=== PATIENT | male | born 1965 | race African-American/Black ===

== ENCOUNTER 2017-03-07 06:29 | Inpatient (IN) | payer BC, MEDICARE ==
[~2017-03-07] VITALS: Ht 175.3 cm; Wt 69.4 kg
[2017-03-07] VITALS (37 sets, daily range): BP systolic 84–178; BP diastolic 54–102
[~2017-03-07 06:29] MED LIST: ETOMIDATE 2MG/ML 10ML VIAL IV ONE; STERILE WATER FOR INJECTION 10ML VIAL ONE; SUCCINYLCHOLINE CHLORIDE 200MG/10ML VIAL IV ONE; VECURONIUM BROMIDE 10 MG/VIAL IV ONE
[2017-03-07] MEDS ORDERED: SODIUM CHLORIDE 0.9% 1000ML BAG (SEPSIS BOLUS) IV ONE (06:45)
[2017-03-07] MEDS ORDERED: PROPOFOL 10MG/ML 100ML 100 ML IV ONE (06:45)
[2017-03-07] MEDS ORDERED: SUCCINYLCHOLINE CHLORIDE 200MG/10ML VIAL IV ONE (06:45)
[2017-03-07] MEDS ORDERED: LEVETIRACETAM 500MG/5ML CUP PO ONE (06:45)
[2017-03-07] MEDS ORDERED: VECURONIUM BROMIDE 10 MG/VIAL IV ONE (07:00)
[2017-03-07 07:10] LABS: HEMOGLOBIN. 15.3 g/dL (14.0-18.0); LYMPHOCYTES % 23.5 % (20.0-50.0); MEAN CORPUSCULAR HEMOGLOBIN 27.2 pg (28.0-32.0); MEAN CORPUSCULAR VOLUME 87.4 fL (80.0-94.0); MEAN PLATELET VOLUME 10.8 fl (7.4-10.4); MONOCYTES % 6.9 % (2.0-8.0); NEUTROPHILS % 63.6 % (40.0-76.0); PLATELET 171 x1000/uL (130-400); RED BLOOD CELL COUNT 5.61 mill/uL (4.7-6.1); RED CELL DISTRIBUTION WIDTH 17.7 % (11.6-14.6)
[2017-03-07 07:13] LABS: CHLORIDE 102 mEq/L (98-107)
[2017-03-07 07:16] LABS: INR 2.7; PROTHROMBIN TIME 28.4 sec
[2017-03-07 07:25] LABS: CARBON DIOXIDE 23 mEq/L (21-32); ETHANOL BLOOD < 10 mg/dL; TROPONIN I < 0.02 ng/mL (0.00-0.04)
[2017-03-07] MEDS ORDERED: ETOMIDATE 2MG/ML 10ML VIAL IV ONE (07:30)
[2017-03-07] MEDS ORDERED: LEVETIRACETAM 1,000 MG in SODIUM CHLORIDE 0.9% 100 ML IV NR (07:45)
[2017-03-07] MEDS ORDERED: LORAZEPAM 2MG/ML CPJ IV ONE (08:30)
[2017-03-07 08:57] LABS: BG BASE EXCESS -2.2 mmol/L (-2.0-2.0); BG CARBOXYHEMOGLOBIN 0.3 % (0.5-1.5); BG DEOXYHEMOGLOBIN 0.4 % (0.0-5.0); BG FRACTION INSPIRED OXYGEN 100; BG HCO3 ACT 20.8 mmol/L (22.0-26.0); BG METHEMOGLOBIN 0.6 % (0.0-1.5); BG OXYGEN SATURATION 99.6 % (92.0-98.5); BG OXYHEMOGLOBIN 98.7 % (94.0-97.0); BG PCO2 31.5 mmHg (35.0-45.0); BG PH 7.438 (7.350-7.450); BG PO2 477.7 mmHg (75.0-100.0); BG SAMPLE SITE LEFT BRACHIAL; BG TIDAL VOLUME(mL) 500 mL; BG TOTAL HEMOGLOBIN 16.3 g/dL (12.0-18.0); BG VENT MODE VENT - A/C; BG VENT RATE 12 set
[2017-03-07 09:06] LABS: *AMPHETAMINES SCREEN URINE NEGATIVE (NEGATIVE); *BARBITURATES SCREEN URINE NEGATIVE (NEGATIVE); *BENZODIAZEPINES SCREEN URINE NEGATIVE (NEGATIVE); *COCAINE SCREEN URINE NEGATIVE (NEGATIVE); CANNABINOID URINE SCREEN NEGATIVE (NEGATIVE); METHADONE URINE SCREEN NEGATIVE (NEGATIVE); OPIATES URINE SCREEN NEGATIVE (NEGATIVE); PHENCYCLIDINE URINE SCREEN NEGATIVE (NEGATIVE)
[2017-03-07 09:43] LABS: CLARITY URINE CLEAR (CLEAR); COLOR URINE YELLOW (YELLOW); GLUCOSE URINE NEGATIVE (NEGATIVE); KETONES URINE NEGATIVE (NEGATIVE); LEUKOCYTE ESTERASE URINE NEGATIVE (NEGATIVE); NITRITE URINE NEGATIVE (NEGATIVE); OCCULT BLOOD URINE 1+ (NEGATIVE); PH URINE 6.5 (4.5-8.0); PROTEIN URINE 2+ (NEGATIVE); SPECIFIC GRAVITY URINE 1.012 (1.005-1.030); UROBILINOGEN URINE 0.2 E.U./dL (0.2-1.0)
[2017-03-07] MEDS ORDERED: ACYC200C PO (11:25)
[2017-03-07] MEDS ORDERED: PRED5TAB48 PO (11:25)
[2017-03-07] MEDS ORDERED: WARF7.5T22 PO (11:25)
[2017-03-07] MEDS ORDERED: WARF10TA21 PO (11:25)
[2017-03-07] MEDS ORDERED: NIFE30TA94 PO (11:25)
[2017-03-07] MEDS ORDERED: FURO20TA4 PO (11:25)
[2017-03-07] MEDS ORDERED: BELATACEPT (11:25)
[2017-03-07] MEDS ORDERED: LEVEMIR SUBCUT (11:29)
[2017-03-07] MEDS ORDERED: ONDANSETRON HCL 4MG/2ML VIAL IV PRN (12:30)
[2017-03-07] MEDS ORDERED: ACETAMINOPHEN 325MG TABLET PO PRN (12:30)
[2017-03-07] MEDS ORDERED: CLONIDINE 0.1MG TABLET PO PRN (12:30)
[2017-03-07] MEDS ORDERED: ACYCLOVIR 200MG CAPSULE PO SCH (12:30)
[2017-03-07] MEDS ORDERED: DEXTROSE 50% WATER 50ML SYRINGE IV PRN (12:30)
[2017-03-07] MEDS ORDERED: BLOOD SUGAR DIAGNOSTIC STRIP TEST SCH (12:50)
[2017-03-07] MEDS ORDERED: INSULIN LISPRO 100 UNITS/ML SUBCUT SCH (13:20)
[2017-03-07] MEDS: PANTOPRAZOLE SODIUM 40 MG/VIAL IV SCH (13:29)
[2017-03-07] MEDS: PREDNISONE 5MG TABLET PO SCH (13:30)
[2017-03-07] MEDS: PROPOFOL 10MG/ML 100ML 100 ML IV PRN ×2 (13:30→21:02)
[2017-03-07] MEDS: DEXT 5%/0.45% NACL 1000ML 1,000 ML IV SCH (13:47)
[2017-03-07] MEDS: PIPERACILLIN/TAZ 3.375G PREMIX 50 ML IV SCH ×2 (13:50→21:35)
[2017-03-07] MEDS: IPRATROPIUM/ALBUTEROL 0.5-3(2.5)MG/3ML NEB INH PRN (13:56)
[2017-03-07 16:44] LABS: TROPONIN I 0.08 ng/mL (0.00-0.04)
[2017-03-07] MEDS: BLOOD SUGAR DIAGNOSTIC STRIP TEST SCH (18:00)
[2017-03-07] MEDS: INSULIN LISPRO 100 UNITS/ML SUBCUT SCH (19:26)
[2017-03-07] MEDS: LEVETIRACETAM 500 MG in SODIUM CHLORIDE 0.9% 100 ML IV SCH (20:47)
[2017-03-08] VITALS (38 sets, daily range): BP systolic 101–150; BP diastolic 59–94
[2017-03-08] MEDS: BLOOD SUGAR DIAGNOSTIC STRIP TEST SCH ×5 (00:09→23:51)
[2017-03-08] MEDS: INSULIN LISPRO 100 UNITS/ML SUBCUT SCH ×5 (00:12→23:59)
[2017-03-08 00:42] LABS: TROPONIN I 0.05 ng/mL (0.00-0.04)
[2017-03-08] MEDS: PROPOFOL 10MG/ML 100ML 100 ML IV PRN (03:43)
[2017-03-08] MEDS: DEXT 5%/0.45% NACL 1000ML 1,000 ML IV SCH ×2 (03:43→15:35)
[2017-03-08 05:45] LABS: BASOPHILS % 0.6 % (0.0-2.0); EOSINOPHILS % 2.8 % (0.0-5.0); HEMATOCRIT. 46.5 % (42.0-52.0); LYMPHOCYTES % 11.4 % (20.0-50.0); MEAN CORPUSCULAR HEMOGLOBIN 27.2 pg (28.0-32.0); MEAN CORPUSCULAR VOLUME 84.6 fL (80.0-94.0); MEAN PLATELET VOLUME 11.4 fl (7.4-10.4); MONOCYTES % 10.8 % (2.0-8.0); NEUTROPHILS % 74.4 % (40.0-76.0); PLATELET 135 x1000/uL (130-400); RED CELL DISTRIBUTION WIDTH 18.2 % (11.6-14.6)
[2017-03-08 06:09] LABS: CARBON DIOXIDE 27 mEq/L (21-32); CHLORIDE 104 mEq/L (98-107)
[2017-03-08 06:16] LABS: HDL CHOLESTEROL 72 mg/dL (40-59); LDL CHOLESTEROL 93 mg/dL (5-100)
[2017-03-08] MEDS: PIPERACILLIN/TAZ 3.375G PREMIX 50 ML IV SCH ×3 (06:24→21:59)
[2017-03-08 07:50] LABS: BG BASE EXCESS 0.8 mmol/L (-2.0-2.0); BG CARBOXYHEMOGLOBIN 0.6 % (0.5-1.5); BG DEOXYHEMOGLOBIN 2.4 % (0.0-5.0); BG HCO3 ACT 23.1 mmol/L (22.0-26.0); BG METHEMOGLOBIN 0.2 % (0.0-1.5); BG OXYGEN SATURATION 97.6 % (92.0-98.5); BG OXYHEMOGLOBIN 96.8 % (94.0-97.0); BG PCO2 30.9 mmHg (35.0-45.0); BG PH 7.492 (7.350-7.450); BG PO2 95.3 mmHg (75.0-100.0); BG SAMPLE SITE RIGHT BRACHIAL; BG TIDAL VOLUME(mL) 550 mL; BG TOTAL HEMOGLOBIN 15.1 g/dL (12.0-18.0); BG VENT MODE VENT - A/C; BG VENT RATE 12 set
[2017-03-08] MEDS: IPRATROPIUM/ALBUTEROL 0.5-3(2.5)MG/3ML NEB INH PRN ×2 (08:06→12:08)
[2017-03-08] MEDS: LEVETIRACETAM 500 MG in SODIUM CHLORIDE 0.9% 100 ML IV SCH ×2 (08:28→20:06)
[2017-03-08] MEDS: PANTOPRAZOLE SODIUM 40 MG/VIAL IV SCH (08:28)
[2017-03-08] MEDS: ACYCLOVIR 400 MG TABLET PO SCH (08:29)
[2017-03-08] MEDS: PREDNISONE 5MG TABLET PO SCH (08:29)
[2017-03-08] MEDS ORDERED: POTASSIUM CHLORIDE 20MEQ TABLET SR PO SCH (11:45)
[2017-03-08 12:02] LABS: BG BASE EXCESS -0.6 mmol/L (-2.0-2.0); BG CARBOXYHEMOGLOBIN 0.3 % (0.5-1.5); BG CPAP (cmH2O) 0 cm(H2O); BG HCO3 ACT 23.5 mmol/L (22.0-26.0); BG METHEMOGLOBIN 0.3 % (0.0-1.5); BG OXYHEMOGLOBIN 97.4 % (94.0-97.0); BG PCO2 37.4 mmHg (35.0-45.0); BG PH 7.416 (7.350-7.450); BG PO2 109.3 mmHg (75.0-100.0); BG SAMPLE SITE RIGHT BRACHIAL; BG TOTAL HEMOGLOBIN 15.4 g/dL (12.0-18.0); BG VENT MODE VENT - CPAP
[2017-03-08 13:37] LABS: INR 2.4; PROTHROMBIN TIME 24.7 sec
[2017-03-08 14:10] LABS: BG BASE EXCESS 0.2 mmol/L (-2.0-2.0); BG CARBOXYHEMOGLOBIN 0.6 % (0.5-1.5); BG FRACTION INSPIRED OXYGEN 35; BG HCO3 ACT 25.6 mmol/L (22.0-26.0); BG METHEMOGLOBIN 0.4 % (0.0-1.5); BG PCO2 44.1 mmHg (35.0-45.0); BG PH 7.382 (7.350-7.450); BG PO2 190.7 mmHg (75.0-100.0); BG SAMPLE SITE RIGHT BRACHIAL; BG TOTAL HEMOGLOBIN 15.4 g/dL (12.0-18.0); BG VENT MODE MASK - AEROSOL
[2017-03-08 15:25] LABS: HEPATITIS B SURFACE ANTIGEN NEGATIVE
[2017-03-08] MEDS: METHYLPREDNISOLONE SOD SUCC 40 MG/ML VIAL IV SCH (15:35)
[2017-03-08 15:53] LABS: HEPATITIS B CORE AB IGM NEGATIVE
[2017-03-08 15:54] LABS: HEPATITIS A AB IGM NEGATIVE (NEGATIVE)
[2017-03-08] MEDS: IPRATROPIUM/ALBUTEROL 0.5-3(2.5)MG/3ML NEB INH SCH ×2 (16:09→20:04)
[2017-03-08 19:27] LABS: CLARITY URINE CLOUDY (CLEAR); COLOR URINE YELLOW (YELLOW); GLUCOSE URINE NEGATIVE (NEGATIVE); KETONES URINE NEGATIVE (NEGATIVE); LEUKOCYTE ESTERASE URINE TRACE (NEGATIVE); NITRITE URINE NEGATIVE (NEGATIVE); OCCULT BLOOD URINE 3+ (NEGATIVE); PROTEIN URINE 1+ (NEGATIVE); SPECIFIC GRAVITY URINE 1.026 (1.005-1.030); UROBILINOGEN URINE 0.2 E.U./dL (0.2-1.0)
[2017-03-09] VITALS (24 sets, daily range): BP systolic 101–160; BP diastolic 60–90
[2017-03-09] MEDS: IPRATROPIUM/ALBUTEROL 0.5-3(2.5)MG/3ML NEB INH SCH ×6 (00:01→20:11)
[2017-03-09] MEDS: BLOOD SUGAR DIAGNOSTIC STRIP TEST SCH ×4 (05:42→23:17)
[2017-03-09] MEDS: METHYLPREDNISOLONE SOD SUCC 40 MG/ML VIAL IV SCH ×2 (05:51→18:09)
[2017-03-09] MEDS: INSULIN LISPRO 100 UNITS/ML SUBCUT SCH ×4 (05:51→23:17)
[2017-03-09] MEDS: PIPERACILLIN/TAZ 3.375G PREMIX 50 ML IV SCH ×3 (05:51→21:49)
[2017-03-09] MEDS: PREDNISONE 5MG TABLET PO SCH (08:38)
[2017-03-09] MEDS: PANTOPRAZOLE SODIUM 40 MG/VIAL IV SCH (08:38)
[2017-03-09] MEDS: LEVETIRACETAM 500 MG in SODIUM CHLORIDE 0.9% 100 ML IV SCH ×2 (08:38→20:06)
[2017-03-09] MEDS: ACYCLOVIR 400 MG TABLET PO SCH (08:39)
[2017-03-09 10:44] LABS: HEMATOCRIT. 45.8 % (42.0-52.0); HEMOGLOBIN. 14.7 g/dL (14.0-18.0); MEAN CORPUSCULAR HEMOGLOBIN 27.4 pg (28.0-32.0); MEAN CORPUSCULAR VOLUME 85.2 fL (80.0-94.0); MEAN PLATELET VOLUME 10.9 fl (7.4-10.4); PLATELET 157 x1000/uL (130-400); RED BLOOD CELL COUNT 5.37 mill/uL (4.7-6.1); RED CELL DISTRIBUTION WIDTH 18.1 % (11.6-14.6)
[2017-03-09 11:09] LABS: PLATELET ESTIMATE NORMAL
[2017-03-09] MEDS ORDERED: THROAT LOZENGES-BENZOCAINE/MENTH/CETYLPYRD CL LOZENGES MM PRN (13:15)
[2017-03-09] MEDS ORDERED: NON FORMULARY PATIENT HOME MED EA XX SCH (13:15)
[2017-03-09] MEDS: GUAIFENESIN/CODEINE 100-10MG/5ML UDC PO PRN (14:46)
[2017-03-10] VITALS (19 sets, daily range): BP systolic 98–161; BP diastolic 57–108
[2017-03-10] MEDS: IPRATROPIUM/ALBUTEROL 0.5-3(2.5)MG/3ML NEB INH SCH ×6 (00:02→20:34)
[2017-03-10] MEDS: PIPERACILLIN/TAZ 3.375G PREMIX 50 ML IV SCH ×3 (05:12→22:05)
[2017-03-10] MEDS: METHYLPREDNISOLONE SOD SUCC 40 MG/ML VIAL IV SCH (05:12)
[2017-03-10] MEDS: INSULIN LISPRO 100 UNITS/ML SUBCUT SCH ×4 (05:13→21:27)
[2017-03-10] MEDS: BLOOD SUGAR DIAGNOSTIC STRIP TEST SCH ×4 (05:14→21:29)
[2017-03-10] MEDS: ACYCLOVIR 400 MG TABLET PO SCH (08:04)
[2017-03-10] MEDS: PANTOPRAZOLE SODIUM 40 MG/VIAL IV SCH (08:04)
[2017-03-10] MEDS: LEVETIRACETAM 500 MG in SODIUM CHLORIDE 0.9% 100 ML IV SCH ×2 (08:04→21:25)
[2017-03-10] MEDS: PREDNISONE 5MG TABLET PO SCH (08:04)
[2017-03-10] MEDS: GUAIFENESIN/CODEINE 100-10MG/5ML UDC PO PRN (08:05)
[2017-03-10] MEDS ORDERED: BLOOD SUGAR DIAGNOSTIC STRIP TEST SCH (12:50)
[2017-03-10] MEDS ORDERED: INSULIN LISPRO 100 UNITS/ML SUBCUT SCH (13:20)
[2017-03-10] MEDS ORDERED: INSULIN DETEMIR UD 100 UNITS/ML SYR SUBCUT SCH (22:00)
[2017-03-11] VITALS: BP 108/65
[2017-03-11] MEDS: IPRATROPIUM/ALBUTEROL 0.5-3(2.5)MG/3ML NEB INH SCH ×4 (00:28→12:31)
[2017-03-11 04:00] VITALS: BP 155/92
[2017-03-11] MEDS: BLOOD SUGAR DIAGNOSTIC STRIP TEST SCH ×2 (06:23→12:26)
[2017-03-11] MEDS: PIPERACILLIN/TAZ 3.375G PREMIX 50 ML IV SCH ×2 (06:23→14:14)
[2017-03-11 07:15] LABS: CARBON DIOXIDE 29 mEq/L (21-32); CHLORIDE 105 mEq/L (98-107)
[2017-03-11 08:09] VITALS: BP 139/88
[2017-03-11] MEDS ORDERED: METHYLPREDNISOLONE SOD SUCC 40 MG/ML VIAL IV SCH (09:00)
[2017-03-11] MEDS: LEVETIRACETAM 500 MG in SODIUM CHLORIDE 0.9% 100 ML IV SCH (09:01)
[2017-03-11] MEDS: INSULIN LISPRO 100 UNITS/ML SUBCUT SCH ×2 (09:02→12:35)
[2017-03-11] MEDS: PANTOPRAZOLE SODIUM 40 MG/VIAL IV SCH (09:03)
[2017-03-11] MEDS: ACYCLOVIR 400 MG TABLET PO SCH (09:03)
[2017-03-11 09:37] LABS: BASOPHILS % 0.3 % (0.0-2.0); EOSINOPHILS % 0.9 % (0.0-5.0); HEMOGLOBIN. 13.9 g/dL (14.0-18.0); LYMPHOCYTES % 7.5 % (20.0-50.0); MEAN CORPUSCULAR HEMOGLOBIN 27.6 pg (28.0-32.0); MEAN CORPUSCULAR VOLUME 85.5 fL (80.0-94.0); NEUTROPHILS % 84.3 % (40.0-76.0); PLATELET 149 x1000/uL (130-400); RED BLOOD CELL COUNT 5.03 mill/uL (4.7-6.1); RED CELL DISTRIBUTION WIDTH 17.4 % (11.6-14.6)
[2017-03-11 12:00] VITALS: BP 134/89
[2017-03-11 15:40] VITALS: BP 132/74
[2017-03-11 16:00] VITALS: BP 138/73
== END 2017-03-11 17:20 | disposition home or self-care (01) | DRG 208 ==
LOC: ER 06:29 → CVICU 07:51 → ENRESERV 08:49 → 7WST 03-10 17:18
PROVIDERS: ADMIT Internal Medicine; ATTEND Internal Medicine
PROC: 5A1945Z Respiratory Ventilation, 24-96 Consecutive Hours (ICD-10-PCS; principal; 2017-03-07)
PROC: 02HV33Z Insertion of Infusion Device into Superior Vena Cava, Percutaneous Approach (ICD-10-PCS; 2017-03-07)
PROC: B548ZZA Ultrasonography of Superior Vena Cava, Guidance (ICD-10-PCS; 2017-03-07)
PROC: 0BH17EZ Insertion of Endotracheal Airway into Trachea, Via Natural or Artificial Opening (ICD-10-PCS; 2017-03-07)
PROC: 5A09457 Assistance with Respiratory Ventilation, 24-96 Consecutive Hours, Continuous Positive Airway Pressure (ICD-10-PCS; 2017-03-08)
DX: J96.00 Acute respiratory failure, unspecified whether with hypoxia or hypercapnia (principal); N18.6 End stage renal disease; I12.0 Hypertensive chronic kidney disease with stage 5 chronic kidney disease or end stage renal disease; Z94.0 Kidney transplant status; G40.901 Epilepsy, unspecified, not intractable, with status epilepticus; E11.22 Type 2 diabetes mellitus with diabetic chronic kidney disease; G47.33 Obstructive sleep apnea (adult) (pediatric); J44.9 Chronic obstructive pulmonary disease, unspecified; T45.515A Adverse effect of anticoagulants, initial encounter; E11.51 Type 2 diabetes mellitus with diabetic peripheral angiopathy without gangrene; Z79.899 Other long term (current) drug therapy; Y92.89 Other specified places as the place of occurrence of the external cause; Z89.511 Acquired absence of right leg below knee
CPT/HCPCS: 31500; 36415; 36600; 51702; 70450; 70551; 71010; 74000; 76705; 76937; 80048; 80053; 80061; 80305; 81001; 82375; 82550; 82805; 82962; 83605; 83690; 83880; 84439; 84443; 84484; 85025; 85610; 86705; 86709; 86803; 87040; 87070; 87086; 87340; 93005; 94003; 94640; 94660; 94664; 95816; 96361; 96365; 96375; 97162; 99291; A4216; C1725; C9113; G0482; J0330; J1815; J1953; J2060; J2405; J2543; J2704; J2920; J3490; J7030; J7040; J7050; J7512; J7620; A4315